=== PATIENT | male | born 1980 | race Caucasian/White ===

== ENCOUNTER 2018-06-01 19:45 | Emergency (ER) | payer BC, OTHER ==
[2018-06-01] MEDS ORDERED: Amoxicillin/Potassium Clav 875 MG TAB ONE (22:06)
[2018-06-01] MEDS ORDERED: Benzonatate 100 MG CAP ONE (22:06)
[2018-06-01] MEDS ORDERED: Dexamethasone 4 MG TAB ONE (22:06)
[2018-06-01] MEDS ORDERED: Azithromycin 250 MG TAB ONE (22:06)
--- NOTE | 2018-06-01 23:12 | RAD ---
EXAM: CHEST TWO VIEWS: History: Cough and pain. Wheezing in the left lower lobe. FINDINGS: Heart size is within normal limits. The bronchovascular markings are increased bilaterally. There is some more focally prominent increased density in the left infrahilar region, retrocardiac area raricardo g concern for the possibility of left lower lobe pneumonia or pneumonitis. The right lung appears joe ar. IMPRESSION: Evidence for increased density in the left infrahilar retrocardiac region raising concern for minimal pneumonia or pneumonitis. Short term follow up for complete clearing. POS: [facility]
== END 2018-06-01 22:17 | disposition home or self-care (01) ==
LOC: SCSER 19:45
DX: J18.9 Pneumonia, unspecified organism (principal); I10 Essential (primary) hypertension; F17.210 Nicotine dependence, cigarettes, uncomplicated
CPT/HCPCS: 71046; 87804; J8540

== ENCOUNTER 2019-10-15 07:17 | Outpatient (CLI) | payer BC ==
--- NOTE | 2019-10-15 08:49 | MRI ---
MRI OF THE RIGHT KNEE WITHOUT CONTRAST: INDICATION: History of right knee pain. COMPARISON: None. FINDINGS: There is a full-thickness, obliquely oriented radial tear involving the posterior root and central po sterior horn of the medial meniscus with medial extrusion. There is some intrinsic degenerative sign al seen within the medial meniscus. The lateral meniscus is intact. No full-thickness articular car tilage injury is seen involving the femorotibial compartment. There is a near full-thickness chondra l fissure involving the median patellar ridge on image 9 of series 14 measuring 6.4 mm. There is a s mall effusion. The MCL, ACL, PCL, and LCLC are intact. The extensor mechanism is intact. IMPRESSION: 1. Medial meniscal tear. 2. Chondrosis of the patella. POS: [facility]
== END 2019-10-15 07:18 | disposition home or self-care (01) ==
LOC: TBSIIMAG 07:17
PROVIDERS: ATTEND Orthopaedic Surgery
DX: S83.241A Other tear of medial meniscus, current injury, right knee, initial encounter (principal)